=== PATIENT | female | born 1945 | race Caucasian/White ===

== ENCOUNTER → 2020-06-14 | Outpatient (CLI) | payer OTHER ==
--- NOTE | 2020-06-14 10:49 | CT ---
EXAMINATION TYPE: CT facial bones wo con DATE OF EXAM: 06/14/2020 COMPARISON: None HISTORY: 74-year-old female Right temporal area contusion, trauma TECHNIQUE: Contiguous axial scanning of the facial bones without IV contrast. Coronal reconstructions performed. CT DLP: 603 mGycm Automated exposure control for dose reduction was used. FINDINGS: Trace mucosal thickening ethmoid air cells. 1.6 cm polyp or mucosal retention cyst floor of the left maxillary sinus. 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 Orbits and globes and visualized mastoid air maureen ls appear clear. Leftward nasal septal deviation. TMJs, pterygoid plates, zygomatic arches, nasal bones appear intact. Orbits and globes are intact. No facial bone fracture identified. IMPRESSION: LEFTWARD NASAL SEPTAL DEVIATION AND A 1.6 CM POLYP OR MUCOSAL RETENTION CYST IN THE LEFT MAXILLARY SI NUS. NO ACUTE FACIAL BONE FRACTURE SEEN.
--- NOTE | 2020-06-14 11:35 | XR ---
EXAMINATION TYPE: XR tibia fibula RT DATE OF EXAM: 06/14/2020 COMPARISON: NONE HISTORY: Pain TECHNIQUE: Two views are submitted. FINDINGS: The osseous structures are intact. Arthropathy of the knee joint noted. No erosive changes. IMPRESSION: 1. No acute osseous abnormality.
--- NOTE | 2020-06-14 11:36 | XR ---
EXAMINATION TYPE: XR knee complete RT DATE OF EXAM: 06/14/2020 COMPARISON: NONE HISTORY: Pain TECHNIQUE: Three views are submitted. FINDINGS: A mild to moderate narrowing of the medial compartment of the knee joint and patellofemoral joint wit h hypertrophic spurring.. Osseous structures are intact. No acute fracture seen. IMPRESSION: 1. No acute fracture or dislocation. 2. Correlate for osteoarthritis.
--- NOTE | 2020-06-14 11:38 | XR ---
EXAMINATION TYPE: XR femur RT DATE OF EXAM: 06/14/2020 CLINICAL HISTORY: Pain TECHNIQUE: Two views of the right femur are obtained. COMPARISON: None FINDINGS: There is no acute fracture or dislocation seen in the right femur. Arthropathy with concen tric narrowing of the hip joint noted. 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 Suspect soft tissue artifact lateral to the greater trochanter correlat e clinically. IMPRESSION: 1. Arthropathy. 2. No acute fracture.
== END | disposition home or self-care (01) ==
LOC: RADCTMAIN 09:59
PROVIDERS: ATTEND Emergency Medicine
DX: M12.871 Other specific arthropathies, not elsewhere classified, right ankle and foot (principal); S80.01XA Contusion of right knee, initial encounter; S80.11XA Contusion of right lower leg, initial encounter; S00.83XA Contusion of other part of head, initial encounter; J34.2 Deviated nasal septum
CPT/HCPCS: 70486

== ENCOUNTER → 2023-06-26 | Outpatient (CLI) | payer BC ==
--- NOTE | 2023-06-29 07:36 | MM ---
Reason for Exam: Screening (asymptomatic). Last mammogram was performed 23 year(s) and 8 month(s) ago. Patient History: Menarche at age 15. First Full-Term at age 30. Postmenopausal. Patient has history of breast feeding. Patient used Estrogen for 2 years. Risk Values: Meena 5 year model risk: 1.8%. NCI Lifetime model risk: 3.6%. Prior Study Comparison: 08/01/1998 Bilateral Screening Mammogram, [facility]. 08/24/1998 Right Special View Mammogram, [facility]. 11/12/1999 Bilateral Screening Mammogram, [facility]. Tissue Density: The breast tissue is almost entirely fat. Findings: Analyzed By CAD. There is no suspicious group of microcalcifications or new suspicious mass. Overall Assessment: Negative, BI-RAD 1 Management: Screening Mammogram of both breasts in [address] [facility] will attempt to contact patient to return for supplemental views and ultrasound if indicated. Patient should continue monthly self-breast exams. A clinical breast exam by your physician is recommended on an annual basis. This exam should not preclude additional follow-up of suspicious palpable abnormalities. Note on Meena scores and lifetime risk: 1. A Meena score greater than 3% is considered moderate risk. If this is the case, consider specialist referral to assess eligibility for a risk reducing agent. 2. If overall lifetime risk for the development of breast cancer is 20% or higher, the patient may qualify for future screening with alternating mammogram and breast MRI. Electronically signed and approved by: Neil Severino DO
== END | disposition home or self-care (01) ==
LOC: RADMAMWWP 15:49
PROVIDERS: ATTEND Family Medicine
DX: Z12.31 Encounter for screening mammogram for malignant neoplasm of breast (principal); Z78.0 Asymptomatic menopausal state
CPT/HCPCS: 77063; 77067